=== PATIENT | male | born 1955 | race Caucasian/White ===

== ENCOUNTER 2024-05-11 16:57 | Emergency (ER) | payer OTHER ==
[~2024-05-11] VITALS: Ht 172.7 cm; Wt 84.8 kg
[2024-05-11] MEDS ORDERED: METOPROLOL SUC200 MG PO (17:15)
[2024-05-11] MEDS ORDERED: NIFEDIPINE20 MG (17:15)
[2024-05-11] MEDS ORDERED: ATACAND HCT 321 EAC1 PO (17:15)
[2024-05-11] MEDS ORDERED: ZESTRIL40 M1 (17:15)
[2024-05-11] MEDS ORDERED: ECOTRIN81 MG PO (17:16)
[2024-05-11] MEDS ORDERED: ROSUVASTATIN CA10 MG PO (17:16)
[2024-05-11] MEDS ORDERED: PLAVIX75 MG PO (17:17)
[2024-05-11] MEDS ORDERED: METFORMIN HCL500 M3 PO (17:17)
[2024-05-11] MEDS ORDERED: ACETAMINOPHEN500 M1 PO (20:53)
[2024-05-11] MEDS ORDERED: ZITHROMAX TRI-500 MG PO (20:53)
[2024-05-11] MEDS ORDERED: GILTUSS COUGH-118 M1 PO (20:53)
== END 2024-05-11 20:59 | disposition home or self-care (01) ==
LOC: ER 16:58
DX: J06.9 Acute upper respiratory infection, unspecified (principal); R50.9 Fever, unspecified; I10 Essential (primary) hypertension